=== PATIENT | female | born 1990 | race Caucasian/White ===

== ENCOUNTER → 2017-10-30 | Outpatient (CLI) | payer SELFPAY ==
[~2017-10-30] MED LIST: ALBU90OI; ALBU90OI INH; ALBU90OI6 INH; AMIT50; AMOX250 PO; AMOX50 PO; AMOX500 PO; AZIT250 PO; Albenza200 MG PO; Albenza200 MG PT; Amoxicillin500 MG PO; BC PILLS; BCP; BENZ100A PO; BIRTH CONTROL PO; Bactrim Ds Tab1 EACH PO; CEPH500 PO; CLIN1TS TOP; CODACE30 PO; Cipro500 MG PO; Crutch1 EACH MISC; ERYT.5TO LEFTEYE; ESCI10 PO; HYDACE5; HYDACE5 PO; HYDCOR2.5C PR; HYDGUAL120 PO; IBUP400 PO; IBUP600 PO; IBUP800 PO; LANS30EC PO; LORA.5 PO; META800 PO; MULVITMINE PO; NAPR375 PO; NAPR500 PO; NORETHTP; NORETHTP TOP; Naprosyn500 MG PO; Nix Lice Treatm59 ML TOP; Norco 5-325 Ta1 EACH PO; ONDA4 PO; OXYACE5T PO; PENICILLIN; PENVK500 PO; PERM5TC TOP; PRED20 PO; PROACE100 PO; PROM25 PO; Pepcid40 MG PO; Percocet 5-3251 EACH PO; Polytrim Eye Dr10 ML OD; Pyridium100 MG PO; RXOXYACE PO; SERT50; SULTRIDS PO; TRAM50 PO; Ultram50 MG PO; Veetids 500500 MG PO; [UNRECOGNIZED DRUG - REMARK]
[2017-10-30 17:51] LABS: Bilirubin, Urine Neg (Neg); Blood, Urine Neg (Neg); Glucose Qualitative, Urine Neg (Neg); Ketones, Urine Neg (Neg); Leukocyte Esterase, Urine 1+ (Neg); Nitrite, Urine Neg (Neg); Protein, Urine 2+ (Neg); Specific Gravity, Urine 1.025 (1.003-1.022); Urobilinogen, Urine NORM (Normal)
[2017-10-30 18:16] LABS: Appearance, Urine Clear (Clear); Color, Urine Yellow (P-Yellow)
[2017-10-30 18:17] LABS: Amorphous Light (0-Heavy); Bacteria Not Seen /hpf; Mucus Heavy (0-Heavy); Red Blood Cells, Urine 0-2 /hpf (0-2); Squamous Epithelial Cells Not Seen /hpf (Few); White Blood Cells, Urine 0-2 /hpf (0-5)
== END | disposition home or self-care (01) ==
LOC: LAB SHORT 15:51 → LAB 15:51
PROVIDERS: Obstetrics & Gynecology
DX: Z34.80 Encounter for supervision of other normal pregnancy, unspecified trimester (principal)
CPT/HCPCS: 81001

== ENCOUNTER → 2018-05-09 | Outpatient (CLI) | payer OTHER ==
[~2018-05-09] MED LIST changes: +Verotin-Gr Cap1 EACH
== END | disposition home or self-care (01) ==
LOC: LAB SHORT 15:07 → LAB 15:07
DX: O09.90 Supervision of high risk pregnancy, unspecified, unspecified trimester (principal)
CPT/HCPCS: 87081; 87653

== ENCOUNTER 2018-05-27 04:32 | Inpatient (IN) | payer OTHER ==
[~2018-05-27 04:32] MED LIST changes: -Verotin-Gr Cap1 EACH
[2018-05-27 04:50] LABS: BASOPHILS ABSOLUTE AUTO 0.07 K/mm3 (0.00-0.23); BASOPHILS PERCENT AUTO 1 % (0-2); EOSINOPHILS ABSOLUTE AUTO 0.15 K/mm3 (0.00-0.68); EOSINOPHILS PERCENT AUTO 2 % (0-6); Hematocrit 31.1 % (33.0-51.0); Hemoglobin 9.8 g/dL (11.5-16.0); IMMATURE GRAN ABSOLUTE AUTO 0.18 K/mm3 (0.00-0.10); IMMATURE GRAN PERCENT AUTO 2 % (0-1); LYMPHOCYTES ABSOLUTE AUTO 1.81 K/mm3 (0.84-5.20); LYMPHOCYTES PERCENT AUTO 21 % (21-46); MONOCYTES ABSOLUTE AUTO 0.62 K/mm3 (0.16-1.47); MONOCYTES PERCENT AUTO 7 % (4-13); Mean Corpuscular HGB 27.1 pg (26.0-34.0); Mean Corpuscular HGB Conc 31.5 g/dL (31.5-36.5); Mean Corpuscular Volume 86 fL (80-100); Mean Platelet Volume 9.2 fL (9.1-12.4); NEUTROPHILS PERCENT AUTO 67 % (41-73); Platelet Count 252 K/mm3 (150-400); RDW Coefficient Variation 15.7 % (11.7-14.2); RDW Standard Deviation 48.7 fL (35.1-46.3); Red Blood Cell Count 3.61 M/mm3 (3.80-5.20); White Blood Cell Count 8.53 K/mm3 (4.00-11.30)
[2018-05-27] MEDS ORDERED: Verotin-Gr Cap1 EACH (04:52)
--- NOTE | 2018-05-27 09:12 | NUR ---
PT REMINDED TO FEED EVERY 2-3 HOURS. PT ALSO REMINDED TO KEEP ON BACK IN CRIB WHILE PT IS SLEEPING. PT SLEEPING FREQUENTLY. PT REMINDED TO SET ALARMS TO WAKE UP TO FEED BABY/ CHECK DIAPER.
[2018-05-27 10:45] LABS: U Amphetamine Screen DETECTED; U Barbituate Screen Not Detected; U Benzodiazapine Screen Not Detected; U Buprenorphine Screen Not Detected; U Cannabinoids Screen Not Detected; U Cocaine Screen Not Detected; U Methadone Screen Not Detected; U Methamphetamine Screen DETECTED; U Opiates Screen Not Detected; U Oxycodone Screen Not Detected; U Phencyclidine Screen Not Detected; U Propoxyphene Screen Not Detected
--- NOTE | 2018-05-27 12:22 | NUR ---
ASSUMED CARE OF PT AND NB.
--- NOTE | 2018-05-27 20:10 | NUR ---
PT HAS HAD BABY OUT AT THE DESK FOR SEVERAL HOURS. PT REMAINS VERY SLEEPY AND TO BE PHYSICALLY AROUSED TO BE WOKEN FOR ASSESSMENT. SHE DOES ASK HOW "MY BABY" IS. PT ASKED FOR SNACK, UPON RETURNING TO ROOM PT WAS ALREADY FALLING BACK ASLEEP.
--- NOTE | 2018-05-28 01:04 | NUR ---
PT CONTINUES TO SLEEP. AWAKES WHEN VS ARE NEEDED. SHE ASKS HOW HER BABY IS WHEN STAFF IS IN THE ROOM FOR VS. HAS NOT ASKED TO HAVE THE BABY BACK IN HER ROOM.
--- NOTE | 2018-05-28 04:25 | NUR ---
MOTHERS CONTINUES TO SLEEP. WOKE UP FOR VITALS AND TO REQUEST PAIN MEDICATION. DID NOT ASK ABOUT BABY.
[2018-05-28 05:37] LABS: Hematocrit 30.2 % (33.0-51.0); Hemoglobin 9.3 g/dL (11.5-16.0); Mean Corpuscular HGB 26.7 pg (26.0-34.0); Mean Corpuscular HGB Conc 30.8 g/dL (31.5-36.5); Mean Corpuscular Volume 87 fL (80-100); Mean Platelet Volume 9.3 fL (9.1-12.4); NRBC ABSOLUTE 0.02 K/mm3 (0.00-0.02); NRBC Auto 0.2 /100 WBC (0.0-0.2); Platelet Count 254 K/mm3 (150-400); RDW Coefficient Variation 15.5 % (11.7-14.2); Red Blood Cell Count 3.48 M/mm3 (3.80-5.20); White Blood Cell Count 11.49 K/mm3 (4.00-11.30)
--- NOTE | 2018-05-28 07:37 | NUR ---
pt woke up with RN makeing noise in room, she is thankful for being able to sleep, asks how baby is doing, rn reports sleeping at the desk, reports i miss her, but never asks about to have baby, able to get cert completed to the best of pt ability with asking her questions, she asks what is on her breakfast try then lays back down to sleep.
--- NOTE | 2018-05-28 08:22 | NUR ---
baby doctor talked to mom in her room, baby doctor reports that mom would like her baby. baby to room by Nayana Cole rn
--- NOTE | 2018-05-28 08:54 | NUR ---
FOB LEAVING, "REPORTS THE PT AND HER MOM JUST PISSED HIM OFF, REPORTS HE WAS THERE THRU THE AND NOW HE CANT BE AROUND THE KID" "REPORTS THEY COULDNT EVEN CALL HIM" VOLUNTEER JUST CAME TO DESK, HE DROPPED A CIG ON THE WAY OUT ON THE FLOOR AND AND WAS CONCERENED WITH HIS BEHAVIOR. SECURITY PAGED
[2018-05-28] MEDS ORDERED: IBUP800 PO (09:01)
--- NOTE | 2018-05-28 09:05 | NUR ---
pt is aware she will be discharged to go home today or to boarder status, explained boarder status, pt asked multiple questions about baby and when baby could go home, pt is aware that will be in 1-2 days, will be watching for withdrawl of medications and dependent on CPS decision. pt thought that cps might get involved, but wasnt sure, pt reports her other kids are with grandparents. that initially were removed by cps, but case was closed and he grandparents, she thinks have guardianship, but her rights were no terminated.
--- NOTE | 2018-05-28 09:10 | NUR ---
jan is back with 2 coffees. pt told him about cps coming, he is upset, she asked him to leave, he declines reports he only gets to spend an hour with his child, then pt reports it is ok for him to stay if he stays calm. he is upset that the reason she is living with her mom is to stay off of drugs, when he asked her why cps is coming (pt told him they were coming), she reports you know why, he reports why are they coming and she because of meth. the was upset. talked with jan that if she asks for him to leave, he nicely has to leave, he asked if he could call his brother, pt reports it is ok for him to stay if he will be calm. DAFNE gordillo walked in at this time while Rn was explaining to jan that if she asks him to leave and he wont, then will call security to help him. security know jan from the ER. pt mom walked in at 0914
--- NOTE | 2018-05-28 09:21 | NUR ---
pt and jan walked out side for a cig, he reports he is agitated. pt mom is staying with baby and holding baby
--- NOTE | 2018-05-28 09:29 | NUR ---
0929 mom back 0930 fob back 0932 mom passed a clot the size of a ping pong ball. with scant bleeding on the pad, grandma is still in the room holding baby.
--- NOTE | 2018-05-28 13:02 | NUR ---
REPORT TAKEN FROM IFEOMA RODRÍGUEZ. MOTHER DISCHARGED WITH [facility] FOR MOTHER TO GO TO [place] FOR INTAKE APPOINTMENT. MOTHER GIVEN WRITTEN AND VERBAL DISCHARGE INSTRUCTIONS. SCRIPT FOR MOTRIN GIVEN. MOTHER VERABLIZES UNDERSTANDING. MOTHER WILL FOLLOW UP AT [facility] FOR FOLLOW UP WELL WITH DR DIXON IN 2 & 6 WEEKS.
== END 2018-05-28 12:50 | disposition home or self-care (01) | DRG 807 ==
LOC: OBS 04:32 → BC 04:36
PROVIDERS: ADMIT Obstetrics & Gynecology
PROC: 10E0XZZ Delivery of Products of Conception, External Approach (ICD-10-PCS; principal; 2018-05-27)
PROC: 10907ZC Drainage of Amniotic Fluid, Therapeutic from Products of Conception, Via Natural or Artificial Opening (ICD-10-PCS; 2018-05-27)
DX: O99.324 Drug use complicating childbirth (principal); Z37.0 Single live birth; F19.90 Other psychoactive substance use, unspecified, uncomplicated; Z3A.39 39 weeks gestation of pregnancy; O99.334 Smoking (tobacco) complicating childbirth; F17.200 Nicotine dependence, unspecified, uncomplicated
CPT/HCPCS: 36415; 85025; 85027; G0480; J0290; J0696; J1885; J2210; J7120

== ENCOUNTER 2018-05-31 10:44 | Emergency (ER) | payer OTHER ==
[~2018-05-31 10:44] MED LIST changes: +Verotin-Gr Cap1 EACH
== END 2018-05-31 10:58 | disposition left against medical advice (07) ==
LOC: ER 10:44
DX: Z53.21 Procedure and treatment not carried out due to patient leaving prior to being seen by health care provider (principal)

== ENCOUNTER 2020-12-02 19:55 | Emergency (ER) | payer OTHER ==
[~2020-12-02] VITALS: Ht 162.6 cm; Wt 59.0 kg
== END 2020-12-02 21:14 | disposition left against medical advice (07) ==
LOC: ER 19:55
DX: R50.9 Fever, unspecified (principal); J02.9 Acute pharyngitis, unspecified; Z53.20 Procedure and treatment not carried out because of patient's decision for unspecified reasons
CPT/HCPCS: 99282

== ENCOUNTER 2020-12-19 17:25 | Emergency (ER) | payer OTHER ==
[~2020-12-19] VITALS: Ht 165.1 cm; Wt 59.0 kg
[2020-12-19 17:50] LABS: Source, Urine Clean Catch
[2020-12-19 17:53] LABS: Appearance, Urine Hazy (Clear); Bilirubin, Urine Neg (Neg); Blood, Urine 4+ (Neg); Color, Urine Yellow (P-Yellow); Glucose Qualitative, Urine Neg (Neg); Ketones, Urine Neg (Neg); Leukocyte Esterase, Urine 3+ (Neg); Nitrite, Urine Pos (Neg); Protein, Urine 4+ (Neg); Urobilinogen, Urine NORM (Normal)
[2020-12-19 18:02] LABS: Bacteria Many /hpf
[2020-12-19 18:08] LABS: Squamous Epithelial Cells Few /hpf (Few); White Blood Cells, Urine 50-100 /hpf (0-5); Yeast/Fungi Urine Few /hpf
[2020-12-19 18:19] LABS: BASOPHILS ABSOLUTE AUTO 0.07 K/mm3 (0.00-0.23); BASOPHILS PERCENT AUTO 1 % (0-2); EOSINOPHILS ABSOLUTE AUTO 0.17 K/mm3 (0.00-0.68); EOSINOPHILS PERCENT AUTO 1 % (0-6); Hemoglobin 14.4 g/dL (11.5-16.0); IMMATURE GRAN ABSOLUTE AUTO 0.06 K/mm3 (0.00-0.10); IMMATURE GRAN PERCENT AUTO 1 % (0-1); LYMPHOCYTES ABSOLUTE AUTO 2.28 K/mm3 (0.84-5.20); LYMPHOCYTES PERCENT AUTO 18 % (21-46); MONOCYTES ABSOLUTE AUTO 0.83 K/mm3 (0.16-1.47); MONOCYTES PERCENT AUTO 7 % (4-13); Mean Corpuscular HGB 32.8 pg (26.0-34.0); Mean Corpuscular HGB Conc 35.1 g/dL (31.5-36.5); Mean Corpuscular Volume 93 fL (80-100); Mean Platelet Volume 9.4 fL (9.1-12.4); NEUTROPHILS ABSOLUTE AUTO 9.41 K/mm3 (1.96-9.15); NEUTROPHILS PERCENT AUTO 73 % (41-73); Platelet Count 327 K/mm3 (150-400); RDW Coefficient Variation 12.1 % (11.7-14.2); RDW Standard Deviation 42.5 fL (35.1-46.3); Red Blood Cell Count 4.39 M/mm3 (3.80-5.20); White Blood Cell Count 12.82 K/mm3 (4.00-11.30)
[2020-12-19] MEDS ORDERED: Chantix1 MG PO (18:41)
[2020-12-19 18:45] LABS: Alanine Aminotransfer (ALT/SGP 23 U/L (12-78); Albumin/Globulin Ratio 1.1 (0.8-1.8); Alk Phos 67 U/L (50-136); Anion Gap 5 mmol/L (6-16); Aspartate Aminotrans (AST/SGOT 13 U/L (12-37); Bilirubin, Total 0.7 mg/dL (0.1-1.0); Blood Urea Nitrogen 14 mg/dL (8-24); Bun/Creatinine Ratio 17.8 (12.0-20.0); CO2, Blood 23 mmol/L (21-32); Calcium, Blood 8.9 mg/dL (8.5-10.1); Chloride, Blood 109 mmol/L (98-108); Creatinine, Blood 0.79 mg/dL (0.40-1.00); Globulin, Blood 3.7 g/dL (2.2-4.0); Glomerular Filtration Rate >60 (60-); Glucose, Blood 95 mg/dL (70-99); Potassium, Blood 3.6 mmol/L (3.5-5.5); Sodium, Blood 137 mmol/L (136-145); Total Protein, Blood 7.7 g/dL (6.4-8.2)
[2020-12-19] MEDS ORDERED: PHENA200 PO (19:25)
[2020-12-19] MEDS ORDERED: CEFP200 PO (19:25)
== END 2020-12-19 19:55 | disposition home or self-care (01) ==
LOC: ER 17:25
PROVIDERS: Physician Assistant
DX: N12 Tubulo-interstitial nephritis, not specified as acute or chronic (principal); N83.02 Follicular cyst of left ovary; J45.909 Unspecified asthma, uncomplicated; F17.200 Nicotine dependence, unspecified, uncomplicated; B96.20 Unspecified Escherichia coli [E. coli] as the cause of diseases classified elsewhere
CPT/HCPCS: 36415; 74176; 80053; 81001; 83605; 83690; 84703; 85025; 87040; 87077; 87086; 87186; 96374; 96375; 99284-25; A9270; J0696; J1885; J7030

== ENCOUNTER → 2021-01-19 | Outpatient (CLI) | payer OTHER ==
[~2021-01-19] MED LIST changes: +CEFP200 PO; +Chantix1 MG PO; +PHENA200 PO
[2021-01-19 14:35] LABS: Appearance, Urine Clear (Clear); Blood, Urine 1+ (Neg); Color, Urine Red (P-Yellow); Glucose Qualitative, Urine Neg (Neg); Ketones, Urine Neg (Neg); Leukocyte Esterase, Urine Neg (Neg); Nitrite, Urine Pos (Neg); Protein, Urine 2+ (Neg); Urobilinogen, Urine 4+ (Normal)
[2021-01-19 15:23] LABS: Bacteria Mod /hpf; Mucus Light (0-Heavy); Squamous Epithelial Cells Few /hpf (Few)
[2021-01-19 17:04] LABS: Bilirubin, Urine 3+ (Neg)
== END | disposition home or self-care (01) ==
LOC: LAB SHORT 13:02 → LAB 13:02
PROVIDERS: Nurse Practitioner Family
DX: N39.0 Urinary tract infection, site not specified (principal)
CPT/HCPCS: 81001; 87086

== ENCOUNTER 2021-03-25 18:11 | Emergency (ER) | payer OTHER ==
[~2021-03-25] VITALS: Ht 162.6 cm; Wt 56.7 kg
[2021-03-25 19:00] LABS: BASOPHILS ABSOLUTE AUTO 0.08 K/mm3 (0.00-0.23); BASOPHILS PERCENT AUTO 1 % (0-2); EOSINOPHILS ABSOLUTE AUTO 0.07 K/mm3 (0.00-0.68); EOSINOPHILS PERCENT AUTO 0 % (0-6); Hematocrit 41.5 % (33.0-51.0); Hemoglobin 13.9 g/dL (11.5-16.0); IMMATURE GRAN ABSOLUTE AUTO 0.08 K/mm3 (0.00-0.10); IMMATURE GRAN PERCENT AUTO 1 % (0-1); LYMPHOCYTES PERCENT AUTO 9 % (21-46); MONOCYTES ABSOLUTE AUTO 1.56 K/mm3 (0.16-1.47); MONOCYTES PERCENT AUTO 10 % (4-13); Mean Corpuscular HGB 32.4 pg (26.0-34.0); Mean Corpuscular HGB Conc 33.5 g/dL (31.5-36.5); Mean Corpuscular Volume 97 fL (80-100); Mean Platelet Volume 8.9 fL (9.1-12.4); NEUTROPHILS ABSOLUTE AUTO 12.69 K/mm3 (1.96-9.15); NEUTROPHILS PERCENT AUTO 80 % (41-73); Platelet Count 238 K/mm3 (150-400); RDW Coefficient Variation 11.9 % (11.7-14.2); RDW Standard Deviation 42.6 fL (35.1-46.3); Red Blood Cell Count 4.29 M/mm3 (3.80-5.20); White Blood Cell Count 15.88 K/mm3 (4.00-11.30)
[2021-03-25] MEDS ORDERED: Pyridium100 MG PO (19:09)
[2021-03-25 19:15] LABS: Source, Urine Clean Catch
[2021-03-25 19:22] LABS: Alanine Aminotransfer (ALT/SGP 56 U/L (12-78); Albumin, Blood 3.6 g/dL (3.4-5.0); Albumin/Globulin Ratio 0.8 (0.8-1.8); Alk Phos 83 U/L (50-136); Anion Gap 5 mmol/L (6-16); Aspartate Aminotrans (AST/SGOT 33 U/L (12-37); Bilirubin, Total 0.6 mg/dL (0.1-1.0); Blood Urea Nitrogen 9 mg/dL (8-24); Bun/Creatinine Ratio 11.8 (12.0-20.0); CO2, Blood 23 mmol/L (21-32); Calcium, Blood 9.2 mg/dL (8.5-10.1); Chloride, Blood 106 mmol/L (98-108); Creatinine, Blood 0.77 mg/dL (0.40-1.00); Globulin, Blood 4.3 g/dL (2.2-4.0); Glomerular Filtration Rate >60 (60-); Glucose, Blood 87 mg/dL (70-99); Potassium, Blood 3.7 mmol/L (3.5-5.5); Sodium, Blood 134 mmol/L (136-145); Total Protein, Blood 7.9 g/dL (6.4-8.2)
[2021-03-25 19:24] LABS: Appearance, Urine Hazy (Clear); Blood, Urine 4+ (Neg); Color, Urine Yellow (P-Yellow); Glucose Qualitative, Urine Neg (Neg); Ketones, Urine Neg (Neg); Leukocyte Esterase, Urine 1+ (Neg); Nitrite, Urine Pos (Neg); Protein, Urine 2+ (Neg); Urobilinogen, Urine 3+ (Normal)
[2021-03-25 19:29] LABS: Bilirubin, Urine 2+ (Neg)
[2021-03-25 19:33] LABS: Bacteria Few /hpf; Red Blood Cells, Urine 25-50 /hpf (0-2); Squamous Epithelial Cells Few /hpf (Few)
[2021-03-25] MEDS ORDERED: CEFD300 PO (22:48)
== END 2021-03-25 23:00 | disposition home or self-care (01) ==
LOC: ER 18:11
PROVIDERS: Physician Assistant
DX: N10 Acute pyelonephritis (principal); Z88.8 Allergy status to other drugs, medicaments and biological substances; Z79.899 Other long term (current) drug therapy; J45.909 Unspecified asthma, uncomplicated; F17.210 Nicotine dependence, cigarettes, uncomplicated
CPT/HCPCS: 36415; 74176; 80053; 81001; 83605; 85025; 87086; 96365; 96375; 99284-25; A9270; J0696; J1885; J7030

== ENCOUNTER 2022-07-28 18:41 | Emergency (ER) | payer OTHER ==
[~2022-07-28] VITALS: Ht 162.6 cm; Wt 52.2 kg
[~2022-07-28 18:41] MED LIST changes: +CEFD300 PO
[2022-07-28 21:10] LABS: BASOPHILS ABSOLUTE AUTO 0.05 K/mm3 (0.00-0.23); BASOPHILS PERCENT AUTO 1 % (0-2); EOSINOPHILS ABSOLUTE AUTO 0.15 K/mm3 (0.00-0.68); EOSINOPHILS PERCENT AUTO 3 % (0-6); Hematocrit 41.6 % (33.0-51.0); Hemoglobin 14.5 g/dL (11.5-16.0); IMMATURE GRAN ABSOLUTE AUTO 0.01 K/mm3 (0.00-0.10); IMMATURE GRAN PERCENT AUTO 0 % (0-1); LYMPHOCYTES ABSOLUTE AUTO 1.82 K/mm3 (0.84-5.20); LYMPHOCYTES PERCENT AUTO 34 % (21-46); MONOCYTES ABSOLUTE AUTO 0.77 K/mm3 (0.16-1.47); MONOCYTES PERCENT AUTO 14 % (4-13); Mean Corpuscular HGB 32.4 pg (26.0-34.0); Mean Corpuscular HGB Conc 34.9 g/dL (31.5-36.5); Mean Corpuscular Volume 93 fL (80-100); Mean Platelet Volume 8.9 fL (9.1-12.4); NEUTROPHILS ABSOLUTE AUTO 2.62 K/mm3 (1.96-9.15); NEUTROPHILS PERCENT AUTO 48 % (41-73); Platelet Count 271 K/mm3 (150-400); RDW Coefficient Variation 11.8 % (11.7-14.2); RDW Standard Deviation 40.1 fL (35.1-46.3); Red Blood Cell Count 4.48 M/mm3 (3.80-5.20); White Blood Cell Count 5.42 K/mm3 (4.00-11.30)
[2022-07-28 21:31] LABS: Anion Gap 3 mmol/L (6-16); Beta HCG, Quantitative, Serum <1 mIU/mL (0-3); Blood Urea Nitrogen 18 mg/dL (8-24); Bun/Creatinine Ratio 21.5 (12.0-20.0); CO2, Blood 27 mmol/L (21-32); Calcium, Blood 8.5 mg/dL (8.5-10.1); Chloride, Blood 108 mmol/L (98-108); Creatinine, Blood 0.84 mg/dL (0.40-1.00); Glomerular Filtration Rate 96 (60-); Glucose, Blood 106 mg/dL (70-99); Potassium, Blood 3.6 mmol/L (3.5-5.5); Sodium, Blood 138 mmol/L (136-145)
== END 2022-07-28 23:15 | disposition home or self-care (01) ==
LOC: ER 18:41
PROVIDERS: Emergency Medicine
DX: R19.7 Diarrhea, unspecified (principal); R11.2 Nausea with vomiting, unspecified; J45.909 Unspecified asthma, uncomplicated; F17.290 Nicotine dependence, other tobacco product, uncomplicated; Z88.8 Allergy status to other drugs, medicaments and biological substances; Z79.899 Other long term (current) drug therapy
CPT/HCPCS: 36415; 80048; 84702; 85025; A9270; J7120

== ENCOUNTER 2023-01-29 17:13 | Emergency (ER) | payer OTHER ==
[~2023-01-29] VITALS: Ht 162.6 cm; Wt 56.7 kg
[2023-01-29 17:18] VITALS: BP 113/71
== END 2023-01-29 19:42 | disposition home or self-care (01) ==
LOC: ER 17:13
DX: J06.9 Acute upper respiratory infection, unspecified (principal); F17.290 Nicotine dependence, other tobacco product, uncomplicated; Z88.8 Allergy status to other drugs, medicaments and biological substances
CPT/HCPCS: 99283

== ENCOUNTER 2023-03-04 14:53 | Emergency (ER) | payer OTHER ==
[~2023-03-04] VITALS: Ht 162.6 cm; Wt 56.7 kg
[2023-03-04 15:29] VITALS: BP 135/70
[2023-03-04] MEDS ORDERED: AZITHROMYCIN 250 MG (15:41)
[2023-03-04] MEDS ORDERED: ALBU90OI INH (16:19)
== END 2023-03-04 16:30 | disposition home or self-care (01) ==
LOC: ER 14:53
DX: J98.01 Acute bronchospasm (principal); Z88.1 Allergy status to other antibiotic agents; Z79.899 Other long term (current) drug therapy; J45.909 Unspecified asthma, uncomplicated; F17.290 Nicotine dependence, other tobacco product, uncomplicated
CPT/HCPCS: 94640; 94664; 99283-25

== ENCOUNTER 2023-05-16 15:04 | Emergency (ER) | payer OTHER ==
[~2023-05-16] VITALS: Ht 162.6 cm; Wt 56.7 kg
[~2023-05-16 15:04] MED LIST changes: +AZITHROMYCIN 250 MG
[2023-05-16 16:01] VITALS: BP 134/89
== END 2023-05-16 16:00 | disposition home or self-care (01) ==
LOC: ER 15:04
DX: L08.9 Local infection of the skin and subcutaneous tissue, unspecified (principal); J45.909 Unspecified asthma, uncomplicated; F17.290 Nicotine dependence, other tobacco product, uncomplicated; Z79.899 Other long term (current) drug therapy; Z88.8 Allergy status to other drugs, medicaments and biological substances
CPT/HCPCS: 99282

== ENCOUNTER → 2024-03-11 | Outpatient (CLI) | payer OTHER ==
[~2024-03-11] MED LIST changes: +CYCL10 PO
== END ==
LOC: LAB 13:34 → LAB SHORT 13:34
DX: N93.9 Abnormal uterine and vaginal bleeding, unspecified (principal)
CPT/HCPCS: 88305

== ENCOUNTER 2024-06-03 09:23 | Day surgery (SDC) | payer OTHER ==
[~2024-06-03] VITALS: Ht 160 cm; Wt 58.2 kg
[2024-06-03] VITALS (15 sets, daily range): BP systolic 95–112; BP diastolic 46–68
[~2024-06-03 09:23] MED LIST changes: +CeFAZolin Sodium 2,000 MG in NS 100 ML IV SCH; +Dexamethasone Sod Phos 10 MG/ML 1ML VIAL ONE; +FentaNYL Citrate 50 MCG/ML 5 ML Injection ONE; +Ketorolac Tromethamine 30mg Vial ONE; +Lactated Ringer's 1,000 ML IV SCH; +Ondansetron HCl 2 MG / ML 2ML Vial ONE; +Phenazopyridine HCl 100 MG Tab PO SCH; +Rocuronium Bromide 10 MG/ML 5ML Injection IV ONE; +Sugammadex Sodium 200 MG/2ML SDV (100 MG/ML) ONE; +propofoL 20 ML IV ONE
--- NOTE | 2024-06-03 09:45 | NUR ---
DISCUSSED HAVING OPIOIDS ON ALLERGY LIST DUE TO PATIENT WANTING IT THERE TO FLAG THAT NORMALLY SHE WOULD NOT LIKE OPIOIDS DUE TO PAST ADDITCTION, HOWEVER PATIENT REQUESTS THAT DURING HER INPATIENT VISIST FOR THIS SURGERY PLANNED TODAY, SHE IS AGREEABLE TO PRESCRIBES OPIOIDS.
[2024-06-03] MEDS ORDERED: Bupivacaine 0.5% W/EPI 1:200000 SDV 30 ML Vial ONE (10:18)
--- NOTE | 2024-06-03 10:29 | NUR ---
PATIENT TAPED NIPPLE JEWELRY AND SIGNED WAIVER.
[2024-06-03] MEDS ORDERED: Midazolam HCl 1MG / ML 2ML Vial IV SCH (10:30)
[2024-06-03] MEDS ORDERED: Midazolam HCl 1MG / ML 2ML Vial ONE (10:31)
[2024-06-03] MEDS ORDERED: Ketorolac Tromethamine 30mg Vial ONE (12:49)
[2024-06-03] MEDS ORDERED: FentaNYL Citrate 50 MCG/ML 2 ML Injection ONE (12:49)
[2024-06-03] MEDS ORDERED: HYDROmorphone HCl/Pf 1MG SYR ONE (12:50)
[2024-06-03] MEDS ORDERED: Metoclopramide HCl 5MG / ML 2ML Vial ONE (12:53)
[2024-06-03] MEDS ORDERED: FLU VACC TS2024-25(6MOS UP)/PF 45 MCG/0.5 ML SYRINGE IM SCH (13:05)
[2024-06-03] MEDS ORDERED: DiphenhydrAMINE HCL 25 MG Cap PO PRN (13:10)
[2024-06-03] MEDS ORDERED: Ondansetron HCl 2 MG / ML 2ML Vial IV PRN (13:10)
[2024-06-03] MEDS ORDERED: OxyCODONE HCL 5 MG TAB PO PRN ×2 (13:10→13:15)
[2024-06-03] MEDS ORDERED: Lactated Ringer's 1,000 ML IV SCH (13:10)
[2024-06-03] MEDS ORDERED: Naloxone HCl 0.4MG / ML 1ML Vial IV PRN (13:10)
[2024-06-03] MEDS ORDERED: HYDROmorphone HCl/Pf 1MG SYR IV PRN (13:10)
[2024-06-03] MEDS ORDERED: Metoclopramide HCl 5MG / ML 2ML Vial IV PRN (13:15)
[2024-06-03] MEDS ORDERED: Simethicone 80 MG Chew PO PRN (13:15)
--- NOTE | 2024-06-03 15:08 | NUR ---
ARRIVED TO PT ARRIVED TO 218 APPROX 1300. 4 P SLIDE TRANSFER TO BED. S/P LAVH. x3 LAP SITES ACROSS ABD. PT DENIES PAIN STATES "4/10 GAS DISCOMFORT UPPER ABD." ALEJANDRO PAD IN PLACE. PT NORMA PO, VSS, PER REPORT HALEY MORALES'D & WE ARE CURRENTLY AWAITING FIRST VOID. ORIENTED TO & CALL LIGHT.
[2024-06-03] MEDS ORDERED: Ibuprofen 400 MG Tab PO SCH (16:00)
[2024-06-03] MEDS ORDERED: ACET500 PO (16:37)
[2024-06-03] MEDS ORDERED: IBUP800 PO (16:38)
[2024-06-03] MEDS ORDERED: MIRALAX17 GM PO (16:39)
--- NOTE | 2024-06-03 16:56 | NUR ---
UPDATE ON PT POD 0- LAVH. HAS VOIDED 2x-SCANT RED DRAINAGE ON ALEJANDRO PAD. PT UP AMBULATING TO RESTROOM & BACK TO BED. REPORTS PAIN HAS DECREASED AFTER PASSING FLATUS. REPORTS 1/10 LOW ABD CRAMPING. x3 LAP SITES C/D/I. TOLERATING PO. DENIES N/V. VSS. AOX4. PT REQUESTING TO DC HOME. EVISCERATOR OLEG Hobbs, WORKING ON DC.
--- NOTE | 2024-06-03 17:04 | NUR ---
DISCHARGE PT DISCHARGED HOME FROM UNIT AT APROX 1704. PT GIVEN WRITTEN AND VERBAL DISCHARGE INSTRUCTIONS AND PT VERBALIZED UNDERSTANDING. IV REMOVED, TOLERATED WELL. PT REPORTS MEDICATIONS PREV CALLED TO PHARMACY. DECLINES WC TO PRIVATE VEHICLE, AMBULATES INDEPENDENTLY WITH TO PRIVATE VEHICLE
[2024-06-03] MEDS ORDERED: Acetaminophen 500 MG Tab PO SCH (18:00)
[2024-06-03] MEDS ORDERED: Ketorolac Tromethamine 30mg Vial IV SCH (18:00)
[2024-06-04] MEDS ORDERED: Polyethylene Glycol 3350 17 gm PO SCH (09:00)
== END 2024-06-03 17:07 | disposition home or self-care (01) ==
LOC: ORSCMMR 09:23 → ORD 10:45 → SURS 13:43 → ORSCMMR 17:07
PROVIDERS: Obstetrics & Gynecology
PROC: 0UT9FZZ Resection of Uterus, Via Natural or Artificial Opening With Percutaneous Endoscopic Assistance (ICD-10-PCS; principal; 2024-06-03 10:45)
PROC: 0UT7FZZ Resection of Bilateral Fallopian Tubes, Via Natural or Artificial Opening With Percutaneous Endoscopic Assistance (ICD-10-PCS; principal; 2024-06-03 10:45)
DX: N93.9 Abnormal uterine and vaginal bleeding, unspecified (principal); N94.6 Dysmenorrhea, unspecified; J45.909 Unspecified asthma, uncomplicated; Z79.899 Other long term (current) drug therapy; F17.290 Nicotine dependence, other tobacco product, uncomplicated
CPT/HCPCS: 86850; 86900; 86901; 88307; A9270; J0690; J1100; J1171; J1885; J2250; J2405; J2704; J2765; J3010; J7120

== ENCOUNTER 2024-07-11 16:32 | Emergency (ER) | payer OTHER ==
[~2024-07-11] VITALS: Ht 162.6 cm; Wt 58.1 kg
[~2024-07-11 16:32] MED LIST changes: +ACET500 PO; -CeFAZolin Sodium 2,000 MG in NS 100 ML IV SCH; -Dexamethasone Sod Phos 10 MG/ML 1ML VIAL ONE; -FentaNYL Citrate 50 MCG/ML 5 ML Injection ONE; -Ketorolac Tromethamine 30mg Vial ONE; -Lactated Ringer's 1,000 ML IV SCH; +MIRALAX17 GM PO; -Ondansetron HCl 2 MG / ML 2ML Vial ONE; -Phenazopyridine HCl 100 MG Tab PO SCH; -Rocuronium Bromide 10 MG/ML 5ML Injection IV ONE; -Sugammadex Sodium 200 MG/2ML SDV (100 MG/ML) ONE; -propofoL 20 ML IV ONE
[2024-07-11 16:51] VITALS: BP 115/75
== END 2024-07-11 19:24 | disposition home or self-care (01) ==
LOC: ER 16:32
DX: M84.641A Pathological fracture in other disease, right hand, initial encounter for fracture (principal); D16.9 Benign neoplasm of bone and articular cartilage, unspecified; J45.909 Unspecified asthma, uncomplicated; F17.290 Nicotine dependence, other tobacco product, uncomplicated; Z79.899 Other long term (current) drug therapy; Z88.1 Allergy status to other antibiotic agents; Z88.5 Allergy status to narcotic agent
CPT/HCPCS: 29125; 73130; 73200; 99284-25

== ENCOUNTER → 2024-10-28 | Outpatient (CLI) | payer OTHER ==
[~2024-10-28] MED LIST changes: +LEVO750 PO; +METR500 PO; +ONDA4ODT MM; +OXAYDO5 M1 PO
[2024-10-28 20:10] LABS: Bacterial Vaginosis PCR Negative (NEGATIVE); Candida Group, PCR NOT DETECTED (NOT DETECT)
[2024-10-28 20:59] LABS: Candida glabrata-krusei, PCR DETECTED (NOT DETECT)
== END | disposition home or self-care (01) ==
LOC: LAB 17:28 → LAB SHORT 17:28
PROVIDERS: Obstetrics & Gynecology
DX: N89.8 Other specified noninflammatory disorders of vagina (principal)
CPT/HCPCS: 81515

== ENCOUNTER → 2024-11-26 | Outpatient (CLI) | payer OTHER ==
[2024-11-26 17:49] LABS: Bacterial Vaginosis PCR Negative (NEGATIVE); Candida Group, PCR NOT DETECTED (NOT DETECT)
[2024-11-26 18:42] LABS: Candida glabrata-krusei, PCR DETECTED (NOT DETECT)
== END ==
LOC: LAB SHORT 14:27 → LAB 14:27
PROVIDERS: Obstetrics & Gynecology
DX: N89.8 Other specified noninflammatory disorders of vagina (principal)
CPT/HCPCS: 81515

== ENCOUNTER → 2025-01-07 | Outpatient (CLI) | payer OTHER ==
[2025-01-07 20:20] LABS: Bacterial Vaginosis PCR Negative (NEGATIVE); Candida Group, PCR NOT DETECTED (NOT DETECT)
[2025-01-07 20:21] LABS: Candida glabrata-krusei, PCR DETECTED (NOT DETECT)
== END ==
LOC: LAB 17:18 → LAB SHORT 17:18
PROVIDERS: Obstetrics & Gynecology
DX: N89.8 Other specified noninflammatory disorders of vagina (principal)
CPT/HCPCS: 81515

== ENCOUNTER → 2025-04-30 | Outpatient (CLI) | payer OTHER ==
[2025-04-30 17:07] LABS: Bacterial Vaginosis PCR Negative (NEGATIVE); Candida Group, PCR NOT DETECTED (NOT DETECT); Candida glabrata-krusei, PCR NOT DETECTED (NOT DETECT)
== END | disposition home or self-care (01) ==
LOC: LAB SHORT 13:34 → LAB 13:34
PROVIDERS: Obstetrics & Gynecology
DX: N89.8 Other specified noninflammatory disorders of vagina (principal)
CPT/HCPCS: 81515